=== PATIENT | male | born 1970 | race Caucasian/White ===

== ENCOUNTER 2022-09-22 19:51 | Emergency (ER) | payer OTHER ==
[2022-09-22 20:04] LABS: Glucose,Whole Blood 121 mg/dL (70-110)
[2022-09-22] MEDS ORDERED: MORPHINE SULFATE 4 MG/ML SYRINGE IVP STA (20:37)
[2022-09-22] MEDS ORDERED: KETOROLAC 15 MG/ML 1 ML VIAL IVP STA (20:37)
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
[2022-09-22] MEDS ORDERED: LIDOCAINE 5% PATCH TOPICAL ONE (21:45)
[2022-09-22] MEDS ORDERED: PROPOFOL 10 MG/ML 20 ML VIAL IV STA (21:58)
[2022-09-22] MEDS ORDERED: PROPOFOL 10 MG/ML 20 ML VIAL IV ONE (22:45)
[2022-09-22 23:47] VITALS: RESP 16
[2022-09-23] MEDS ORDERED: HYDROcodone/APAP 10-325MG 1 EACH TAB PO ONE (00:01)
[2022-09-23] MEDS ORDERED: KETOROLAC 15 MG/ML 1 ML VIAL IVP STA (00:01)
[2022-09-23 00:44] VITALS: BP 125/69; PULSE 81; TEMP 98
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
== END 2022-09-23 00:44 | disposition home or self-care (01) ==
LOC: EC 19:51
DX: S52.601A Unspecified fracture of lower end of right ulna, initial encounter for closed fracture (principal); S52.301A Unspecified fracture of shaft of right radius, initial encounter for closed fracture; S32.049A Unspecified fracture of fourth lumbar vertebra, initial encounter for closed fracture; Z88.0 Allergy status to penicillin; V49.40XA Driver injured in collision with unspecified motor vehicles in traffic accident, initial encounter
CPT/HCPCS: 36415; 72100; 72170; 73090; 73100; 73110; 71045; 72125; 70450; 99285; 25605; 96374; 96375; 96376; J2270; J1885; J2704

== ENCOUNTER → 2022-09-27 | Outpatient (CLI) | payer OTHER ==
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
== END | disposition home or self-care (01) ==
LOC: RADCTMAIN 15:20
PROVIDERS: ATTEND Orthopaedic Surgery
DX: S52.571A Other intraarticular fracture of lower end of right radius, initial encounter for closed fracture (principal); S52.351A Displaced comminuted fracture of shaft of radius, right arm, initial encounter for closed fracture; S52.251A Displaced comminuted fracture of shaft of ulna, right arm, initial encounter for closed fracture; S52.691A Other fracture of lower end of right ulna, initial encounter for closed fracture; M79.89 Other specified soft tissue disorders; X58.XXXA Exposure to other specified factors, initial encounter

== ENCOUNTER → 2022-10-08 | Outpatient (CLI) | payer OTHER ==
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
== END | disposition home or self-care (01) ==
LOC: RADNMMAIN 09:48
PROVIDERS: ATTEND Physical Medicine & Rehabilitation
DX: M48.56XA Collapsed vertebra, not elsewhere classified, lumbar region, initial encounter for fracture (principal); M47.817 Spondylosis without myelopathy or radiculopathy, lumbosacral region; R93.7 Abnormal findings on diagnostic imaging of other parts of musculoskeletal system
CPT/HCPCS: 78306; A9503